=== PATIENT | male | born 1965 | race African-American/Black ===

== ENCOUNTER → 2021-02-25 | Day surgery (SDC) | payer OTHER ==
[~2021-02-25] VITALS: Ht 170.2 cm; Wt 94.0 kg
[~2021-02-25] MED LIST: AMLO-186 PO; HYDR-2145 PO; HYDR-3164 PO; IV RINGERS,LACTATED 1000ML 1,000 ML IV SCH; PANT40TA77 PO; PROPOFOL 10 MG/ML (20ML) VIAL. IV ONE; SULF1TAB24 PO
--- NOTE | 2021-02-25 08:38 | HP ---
ADMIT DATE: 02/25/2021 UPDATED HISTORY AND PHYSICAL REFERRING PHYSICIAN: Angie Kothari MD REASON: Family history of colon cancer, colorectal screening. HISTORY OF PRESENT ILLNESS: A 55-year-old male who has past medical history significant for asthma, colonic polyps, reflux, hypertension seen for interval exam. Bowel habits have been regular without diarrhea or constipation. There has been no melena and/or hematochezia. Weight and appetite are stable. FAMILY HISTORY: Positive for colon cancer with an alcoholic father. Otherwise without additional complaints. PAST SURGICAL HISTORY: Previous colonoscopy was in 1998. PAST MEDICAL HISTORY: Arthritis, asthma, colonic polyps, gastroesophageal reflux disease, hypertension. ALLERGIES: None. MEDICATIONS: Include amlodipine, hydrochlorothiazide, pantoprazole, sulfamethoxazole and trimethoprim. ALLERGIES: None. FAMILY HISTORY: Significant for colon cancer with father and uncle. Cerebrovascular accident in a brother. Diabetes in multiple family members and hypertension in multiple family members. Social drinker and smoker. PAST SURGICAL HISTORY: Significant for ulcer surgery. REVIEW OF SYSTEMS: Per records. PHYSICAL EXAMINATION: GENERAL: Reveals a well-nourished, well-developed male who is alert, cooperative, in no acute distress. VITAL SIGNS: Pulse 80, respiratory rate 15, blood pressure 130/70. LUNGS: Clear. CARDIAC: S1, S2, without S3, S4 or appreciable murmur. ABDOMEN: Reveals a soft abdomen, normal bowel sounds without appreciable hepatosplenomegaly. EXTREMITIES: No cyanosis, clubbing or edema. IMPRESSION: Colorectal screening with positive family history of colon cancer. PLAN: Recommended at this time risks and benefits of procedure including risk of hemorrhage and perforation during the operation were discussed. The patient is willing to proceed at this time. JAIDEN/VALERI DR: Angela TID: [id number]
[2021-02-25 08:49] VITALS: BP 96/89
--- NOTE | 2021-02-28 18:33 | PATHOLOGY ---
[facility] Accession Number: [id number] . 01 Material submitted: . sigmoid colon - SIGMOID POLYP BX . 01 Clinical history: . SCREEN COLONOSCOPY . 02 Diagnosis: Colon biopsy, sigmoid colon polyp: - Tubular adenoma. ([facility]; 02/28/2021) [facility] 02/28/2021 1436 Local . 02 Comment: There is no high-grade dysplasia or evidence of malignancy. ([facility]; 02/28/2021) . 02 Electronically signed: . Sen Mora MD, Pathologist NPI- [id number] . 01 Gross description: . Received in formalin labeled "Sen Waddell, sigmoid polyp BX" is a fragment of prieto-brown soft tissue measuring 0.2 x 0.2 x 0.1 cm. The specimen is submitted entirely in A1. ([facility]; 02/27/2021) [facility] 02/27/2021 0946 Local . 02 Pathologist provided ICD-10: D12.5 . 02 CPT . 203553 Specimen Comment: A courtesy copy of this report has been sent to [phone], [phone] Specimen Comment: [id number] Specimen Comment: Report sent to / DR JUAREZ Performed at: 01 [facility] [address], [place], [place] [id number] MD Tomy Baker MD Phone: [phone] Performed at: 02 [facility] [address] [place], [place] [id number] MD Sen Mora MD Phone: [phone]
== END | disposition home or self-care (01) ==
LOC: ENDOS 07:32
PROVIDERS: ATTEND Internal Medicine Gastroenterology
DX: Z12.11 Encounter for screening for malignant neoplasm of colon (principal); K64.0 First degree hemorrhoids; D12.5 Benign neoplasm of sigmoid colon; K63.89 Other specified diseases of intestine; K57.30 Diverticulosis of large intestine without perforation or abscess without bleeding; K21.9 Gastro-esophageal reflux disease without esophagitis; I10 Essential (primary) hypertension; M19.90 Unspecified osteoarthritis, unspecified site; J45.909 Unspecified asthma, uncomplicated; F17.210 Nicotine dependence, cigarettes, uncomplicated; Z80.0 Family history of malignant neoplasm of digestive organs; Z79.899 Other long term (current) drug therapy; Z98.890 Other specified postprocedural states
CPT/HCPCS: 45380; J2704; 88305

== ENCOUNTER → 2021-06-15 | Outpatient (CLI) | payer OTHER ==
[2021-02-25 08:49] VITALS: BP 96/89
[~2021-06-15] MED LIST changes: +IOHEXOL 240 MG/ML 50ML VIAL. PO ONE; +IOHEXOL 300 MG/ML 100ML VIAL. IV ONE; -IV RINGERS,LACTATED 1000ML 1,000 ML IV SCH; -PROPOFOL 10 MG/ML (20ML) VIAL. IV ONE
--- NOTE | 2021-06-15 10:40 | KCIC ---
Examination: CT abdomen pelvis with oral and IV contrast HISTORY: History of epigastric abdominal pain COMPARISON: None available TECHNIQUE: Axial CT images of the abdomen pelvis were performed with oral and IV contrast. Coronal an d sagittal reformats are performed Exposure: One or more of the following individualized dose reduction techniques were utilized for thi s examination: 1. Automated exposure control 2. Adjustment of the mA and/or kV according to patient size 3. Use of iterative reconstruction technique FINDINGS: Mild bibasilar lung atelectasis or infiltrates. No evidence of free air identified in the a bdomen. Mild decreased attenuation within the liver likely hepatic steatosis. The cystic structures i dentified in the liver with the largest measuring 1 cm likely cysts. The spleen, right adrenal grossl y appears unremarkable. There is a nodule identified in the left adrenal gland measuring 2 cm and ketty suring 54 Hounsfield units. The stomach is mildly distended with visualized pancreas grossly appears unremarkable. The small bowel is nondilated. Feces and gas noted in the colon. Mild thickened appeara nce of the wall of the transverse colon proximally. The appendix is normal. The gallbladder is mildly distended Bilateral kidneys enhance symmetrically. Cystic structure identified in the left kidney measuring 1.5 cm likely cyst. Mild degenerative changes thoracal lumbar spine. IMPRESSION: 1. Mild thickened appearance of the wall of the transverse colon proximally could be due to mild col itis. 2. 2 cm nodule identified in the left adrenal gland. Follow-up nonemergent adrenal CT or MRI can be considered. 3. Hepatic steatosis. 4. Mild bibasilar lung atelectasis or infiltrates. Electronically signed by: Faustino Camarillo MD (06/15/2021 10:38 AM) [id number]
== END ==
LOC: KCIC CT 08:36
PROVIDERS: ATTEND Internal Medicine Gastroenterology
DX: K76.0 Fatty (change of) liver, not elsewhere classified (principal); J98.11 Atelectasis; E27.9 Disorder of adrenal gland, unspecified; N28.1 Cyst of kidney, acquired; K76.89 Other specified diseases of liver; K31.89 Other diseases of stomach and duodenum; M47.815 Spondylosis without myelopathy or radiculopathy, thoracolumbar region
CPT/HCPCS: 74177; Q9966; Q9967

== ENCOUNTER → 2021-07-28 | Outpatient (CLI) | payer OTHER ==
[2021-02-25 08:49] VITALS: BP 96/89
[~2021-07-28] MED LIST changes: +GADOTERATE 5 MMOL/10ML VIAL. IVP ONE; -IOHEXOL 240 MG/ML 50ML VIAL. PO ONE; -IOHEXOL 300 MG/ML 100ML VIAL. IV ONE
--- NOTE | 2021-07-28 12:53 | KCIC ---
EXAMINATION: MRI abdomen with and without IV contrast. INDICATION:56 years, Male, indeterminate left adrenal nodule. Further evaluation. TECHNIQUE: Multiplanar multisequence MRI of the abdomen was performed. COMPARISON: 06/15/2021. FINDINGS: The study is partially degraded by respiratory motion artifact. LOWER CHEST: Unremarkable. ABDOMEN: Redemonstrated 2.0 cm left adrenal nodule demonstrates drop signal on out of phase sequence, consiste nt with lipid rich adrenal adenoma. Right adrenal gland is unremarkable. Normal size and morphology o f the liver with homogeneous enhancement. No steatosis or iron deposition. Multiple bilobar hepatic s imple and mildly complex nonenhancing cysts, the largest in caudate lobe measures 2.0 cm. The anterio r right hepatic lobe cysts demonstrate thin internal septations. No suspicious focal hepatic lesion. Mild right T1 signal intensity layering in the gallbladder, may represent biliary sludge versus lauren ntrated bile. No cholelithiasis or acute cholecystitis. No biliary ductal dilation. Normal spleen and pancreas. No hydronephrosis in either kidney. There is a 1.8 cm simple nonenhancing left renal cyst. Normal caliber abdominal aorta. Mesenteric arteries and portal veins are patent. No ascites. No lymp hadenopathy. No bowel dilation. MUSCULOSKELETAL STRUCTURES: No suspicious osseous lesion. IMPRESSION: 1. Left 2.1 cm benign lipid rich adrenal adenoma. No follow-up is required. 2. Simple and mildly complex hepatic and left renal cysts. Electronically signed by: Bony Patel MD (07/28/2021 12:51 PM) [id number]
== END ==
LOC: KCIC MRI 08:31
PROVIDERS: ATTEND Internal Medicine Gastroenterology
DX: E27.8 Other specified disorders of adrenal gland (principal); K76.89 Other specified diseases of liver; N28.1 Cyst of kidney, acquired
CPT/HCPCS: 74183; A9575